=== PATIENT | female | born 1945 | race Caucasian/White ===

== ENCOUNTER 2017-07-22 10:51 | Emergency (ER) | payer MEDICARE ==
[~2017-07-22] VITALS: Ht 165.1 cm; Wt 72.7 kg
[2017-07-22] MEDS ORDERED: HYDR-309 PO (10:59)
[2017-07-22] MEDS ORDERED: METF500T4 PO (10:59)
[2017-07-22] MEDS ORDERED: METH2.5T6 PO (10:59)
[2017-07-22] MEDS ORDERED: GABA-531 PO (10:59)
[2017-07-22] MEDS ORDERED: BUPR-93 PO (10:59)
[2017-07-22] MEDS ORDERED: MEDR4 PO (10:59)
[2017-07-22] MEDS ORDERED: DULO60CA44 PO (10:59)
[2017-07-22] MEDS ORDERED: PIOG30TA10 PO (10:59)
[2017-07-22] MEDS ORDERED: ATOR40TA28 PO (10:59)
[2017-07-22] MEDS ORDERED: LOSA50TA37 PO (10:59)
[2017-07-22 11:02] LABS: GLUCOSE,POINT OF CARE 103 MG/DL (70-110)
[2017-07-22 11:18] LABS: BASOPHILS % (AUTO) 0.6 % (0.0-2.0); EOSINOPHILS % (AUTO) 0.9 % (1.0-6.0); HEMATOCRIT 39.3 % (36-46); LYMPHOCYTES % (AUTO) 24.5 % (22.0-44.0); MEAN CORPUSCULAR HEMOGLOBIN 30.8 pg (26.0-34.0); MEAN CORPUSCULAR HGB CONC 33.1 G/dL (31.0-37.0); MEAN CORPUSCULAR VOLUME 93 fL (80-100); MONOCYTES % (AUTO) 8.2 % (2.0-9.0); NEUTROPHILS # (AUTO) 8.1 K/uL (1.8-7.7); NEUTROPHILS % (AUTO) 65.8 % (40.0-70.0); PLATELET COUNT (AUTO) 342 K/uL (150-450); RED BLOOD CELL COUNT(AUTO) 4.22 MIL/uL (4.00-5.20); RED CELL DISTRIBUTION WIDTH 16.4 % (11.5-14.5)
[2017-07-22 11:31] LABS: AMPHET/METH SCREEN,URINE NEGATIVE (NEGATIVE); BARBITURATE SCREEN, URINE NEGATIVE (NEGATIVE); BENZODIAZEPINES SCREEN,URINE NEGATIVE (NEGATIVE); CANNABINOID SCREEN,URINE NEGATIVE (NEGATIVE); COCAINE SCREEN,URINE NEGATIVE (NEGATIVE); METHADONE SCREEN, URINE NEGATIVE (NEGATIVE); OPIATE SCREEN,URINE NEGATIVE (NEGATIVE)
[2017-07-22 11:32] LABS: PHENCYCLIDINE SCREEN,URINE NEGATIVE (NEGATIVE)
[2017-07-22 11:43] LABS: ANION GAP 9 mmol/L (8-16); CARBON DIOXIDE 29 mmol/L (22-29); CHLORIDE 93 mmol/L (98-107); CREATININE 0.68 mg/dL (0.60-1.30); GLOMERULAR FILTR. RATE CALC > 60 mL/min (>60); GLUCOSE,RANDOM 137 mg/dL (70-110); SODIUM SERUM 131 mmol/L (136-145); UREA NITROGEN, BLOOD 14 mg/dL (7-18)
[2017-07-22 11:49] LABS: ALANINE AMINOTRANSFERASE 17 U/L (12-78); ALBUMIN 3.5 g/dL (3.4-5.0); ALKALINE PHOSPHATASE 60 U/L (46-116); ASPARTATE AMINOTRANSFERASE 10 U/L (15-37); BILIRUBIN,TOTAL 0.5 mg/dL (0.1-1.0)
[2017-07-22 12:48] VITALS: BP 150/76
== END 2017-07-22 12:56 | disposition home or self-care (01) ==
LOC: EMS 10:52
DX: F32.9 Major depressive disorder, single episode, unspecified (principal); E11.9 Type 2 diabetes mellitus without complications; E78.00 Pure hypercholesterolemia, unspecified
CPT/HCPCS: 36415; 80053; 80307; 82962; 85025; 99284; G0480